=== PATIENT | male | born 1955 | race Two or more races ===

== ENCOUNTER 2025-07-01 07:21 | Inpatient (IN) | payer OTHER, MEDICAID ==
[~2025-07-01] VITALS: Ht 170.2 cm; Wt 74.9 kg
--- NOTE | 2025-07-01 07:32 | ED.PDOC ---
History of Present Illness HPI Comments 69-year-old male brought by paramedics because of dizziness and alcohol intoxication. He is having problem with his son for which he has been drinking continuously for the past week. Last drink was an hour ago. He states that he is depressed he has no reason to live in hear voices but does not have a plan to harm himself. History of hypertension. Denies any other symptoms. Chief Complaint: ETOH Time Seen by MD: 07:27 Reviewed Notes: Nurses Notes, Medications, Allergies Allergies: Coded Allergies: NO KNOWN ALLERGIES (Unverified , 07/01/25) Information Source: Patient, Emergency Med Personnel Mode of Arrival: EMS Severity: Moderate Timing: Days Duration: Since onset Past Medical History PAST MEDICAL HISTORY: HTN Surgical History: Denies all surgeries Social History Smoker: Non-Smoker Alcohol: Heavy Drugs: Denies Drug Use Constitutional: denies: chills, diaphoresis, fatigue, fever, malaise, sweats, weakness, others EENTM: denies: blurred vision, double vision, ear bleeding, ear discharge, ear drainage, ear pain, ear ringing, eye pain, eye redness, hearing loss, mouth pain, mouth swelling, nasal discharge, nose bleeding, nose congestion, nose pain, photophobia, tearing, throat pain, throat swelling, voice changes, others Respiratory: denies: cough, hemoptysis, orthopnea, SOB at rest, shortness of breath, SOB with excertion, stridor, wheezing, others Cardiovascular: denies: chest pain, dizzy spells, diaphoresis, Dyspnea on exertion, edema, irregular heart beat, left arm pain, lightheadedness, palpitations, PND, syncope, others Gastrointestinal: denies: abdomen distended, abdominal pain, blood streaked bowels, constipated, diarrhea, dysphagia, difficulty swallowing, hematemesis, melena, nausea, poor appetite, poor fluid intake, rectal bleeding, rectal pain, vomiting, others Genitourinary: denies: burning, dysuria, flank pain, frequency, hematuria, incontinence, penile discharge, penile sore, pain, testicle pain, testicle swelling, urgency, others Neurological: reports: dizziness; denies: fainting, headache, left sided numbness, left sided weakness, numbness, paresthesia, pre-existing deficit, right sided numbness, right sided weakness, seizure, speech problems, tingling, tremors, weakness, others Musculoskeletal: denies: back pain, gout, joint pain, joint swelling, muscle pain, muscle stiffness, neck pain, others Integumetry: denies: bruises, change in color, change in hair/nails, dryness, laceration, lesions, lumps, rash, wounds, others Allergic/Immunocompromised: denies: Difficulty Healing, Frequent Infections, Hives, Itching, others Hematologic/Lymphatic: denies: anemia, blood clots, easy bleeding, easy bruising, swollen glands, others Endocrine: denies: excessive hunger, excessive sweating, excessive thirst, excessive urination, flushing, intolerance to cold, intolerance to heat, unexplained weight gain, unexplained weight loss, others Psychiatric: denies: anxiety, bipolar disorder, depression, hopeless, panic disorder, schizophrenia, sleepless, suicidal, others Physical Exam General Appearance: Moderate Distress HEENT: Normal ENT Inspection, Pharynx Normal, TMs Normal Neck: Full Range of Motion, Non-Tender, Normal, Normal Inspection Respiratory: Chest Non-Tender, Lungs Clear, No Accessory Muscle Use, No Respiratory Distress, Normal Breath Sounds Cardiovascular: No Edema, No JVD, No Murmur, No Gallop, Normal Peripheral Pulses, Regular Rate/Rhythm Breast Exam: Deferred Gastrointestinal: No Organomegaly, Non Tender, No Pulsatile Mass, Normal Bowel Sounds, Soft Genitalia: Deferred Pelvic: Deferred Rectal: Deferred Extremities: No calf tenderness, Normal capillary refill, Normal inspection, Normal range of motion, Non-tender, No pedal edema Musculoskeletal : Apperance: Normal Neurologic: Alert, cheese pancake roller II-XII nml as Tested, No Motor Deficits, Normal Affect, Normal Mood, No Sensory Deficits Cerebellar Function: NOT DONE Reflexes: NOT DONE Skin: Dry, Normal Color, Warm Peripheral Pulses: 3+ Radial (R), 3+ Radial (L) Lymphatic: No Adenopathy Was a procedure done? Was a procedure done?: No Differential Dx Considerations may include: Alcohol intoxication Electrolyte imbalance X-Ray, Labs, Meds, VS Vital Signs Date Time Temp Pulse Resp B/P (MAP) Pulse Ox O2 Delivery O2 Flow Rate FiO2 07/01/25 08:21 98.5 114 19 173/99 (123) 95 98.5 07/01/25 08:21 114 19 95 Room Air* 0 21 07/01/25 07:26 97.9 96 20 164/104 98 97.9 Lab Test 07/01/25 07:42 Range/Units White Blood Count 7.8 4.4-10.8 10^3/uL Red Blood Count 5.37 4.5-5.90 10^6/uL Hemoglobin 16.8 13.5-17.5 g/dL Hematocrit 48.9 41.0-53.0 % Mean Corpuscular Volume 91.0 80.0-100.0 fL Mean Corpuscular Hemoglobin 31.3 28.0-32.0 pg Mean Corpuscular Hemoglobin Concent 34.4 32.0-36.0 g/dL Red Cell Distribution Width 14.3 11.8-14.3 % Platelet Count 165 140-450 10^3/uL Mean Platelet Volume 7.5 6.9-10.8 fL Neutrophils (%) (Auto) 75.4 37.0-80.0 % Lymphocytes (%) (Auto) 18.7 10.0-50.0 % Monocytes (%) (Auto) 4.9 0.0-12.0 % Eosinophils (%) (Auto) 0.4 0.0-7.0 % Basophils (%) (Auto) 0.6 0.0-2.0 % Neutrophils # (Auto) 5.9 1.6-8.6 10 ^3/uL Lymphocytes # (Auto) 1.4 0.4-5.4 10 ^3/uL Monocytes # (Auto) 0.4 0-1.3 10 ^3/uL Eosinophils # (Auto) 0 0-0.8 10 ^3/uL Basophils # (Auto) 0 0-0.2 10 ^3/uL Nucleated Red Blood Cells 0.0 % Sodium Level 142 136-145 mmol/L Potassium Level 3.4 L 3.5-5.1 mmol/L Chloride Level 103 98-107 mmol/L Carbon Dioxide Level 19 L 20-31 mmol/L Anion Gap 20 H 5-15 Blood Urea Nitrogen 14 9-23 mg/dL Creatinine 1.17 0.700-1.30 mg/dL Glomerular Filtration Rate Calc 67 >90 mL/min BUN/Creatinine Ratio 12.0 10.0-20.0 Serum Glucose 109 H 74-106 mg/dL Calcium Level 9.2 8.7-10.4 mg/dL Plasma/Serum Blood Alcohol 198.2 H <10 mg/dL Current Medications Medications (Trade) Dose Ordered Sig/Mina Route Start Time Stop Time Status Last Admin Sodium Chloride 1,000 ml @ 1,000 mls/hr Q1H ONCE IVB 07/01/25 07:30 07/01/25 08:29 DC 07/01/25 08:13 Sodium Chloride 1,000 ml @ 30 mls/hr Q24H ONCE IV 07/01/25 07:30 07/02/25 07:29 07/01/25 08:14 Thiamine HCl 100 mg ONCE ONCE IV 07/01/25 07:30 07/01/25 07:31 DC 07/01/25 08:13 Patient alert. Has been drinking for many days. Vitals stable. Answering questions. No sign of any trauma. Establish intravenous access. Was given fluids. Was given thiamine. He has suicidal ideation. Chest x-ray reviewed does not show any acute changes pain CT of the head was not done because there was no trauma related injury. Psychiatric evaluation. Continue monitoring. [place] [id number] Ph: [phone] DIAGNOSTIC IMAGING Diagnostic Imaging Report : [id number] Signed PATIENT: BHAVANA OLSEN ACCT: [id number] UNIT: [id number] : 1955 LOC: ER ROOM / BED: / AGE / SEX: 69 / M ADM STATUS: REG ER SERVICE 5 ORDERING PHYSICIAN: WILL SIDHU MD PROCEDURE(s): CXRP - CHEST PORTABLE REASON: sob ORDER NUMBER(s): [id number], ACCESSION NUMBER(s): [id number] XY CHEST PORTABLE, HISTORY: sob COMPARISON: None None TECHNICAL DATA: 1 view of the chest was obtained. FINDINGS: Lines and tubes: None Cardiomediastinal silhouette: normal Pulmonary vasculature: normal Lung expansion: normal Lung airspace: normal Lung interstitium: normal Pleura: normal Pneumothorax: no Bones: Unremarkable Other: no IMPRESSION: No acute intrathoracic abnormality. ATED BY: ABDI DENNEY MD DICTATED DATE/TIME: 07/01/25840 SIGNED BY: ABDI DENNEY MD SIGNED DATE/TIME: 07/01/25 0841 CC: Time of 1ST Reevaluation: 07:31 Reevaluation 1ST: Unchanged Patient Education/Counseling: Diagnosis, Treatment, Prognosis, Need For Follow Up Family Education/Counseling: No Family Present SEPSIS Sepsis Screen Physician Orders Urinalysis (07/01/25 07:27) Chest Portable (07/01/25 08:16) Sodium Chloride 0.9% (07/01/25 07:30) *Tele Psych Consult (07/01/25 07:33) Vital Signs Date Time Temp Pulse Resp B/P (MAP) Pulse Ox O2 Delivery O2 Flow Rate FiO2 07/01/25 08:21 98.5 114 19 173/99 (123) 95 98.5 07/01/25 08:21 114 19 95 Room Air* 0 21 07/01/25 07:26 97.9 96 20 164/104 98 97.9 Laboratory Tests Test 07/01/25 07:42 White Blood Count 7.8 10^3/uL (4.4-10.8) Medications Medications Dose Ordered Sig/Mina Route Start Time Stop Time Status Last Admin Dose Admin Sodium Chloride 1,000 ml @ 30 mls/hr Q24H ONCE IV 07/01/25 07:30 07/02/25 07:29 07/01/25 08:14 Sodium Chloride 1,000 ml @ 1,000 mls/hr Q1H ONCE IVB 07/01/25 07:30 07/01/25 08:29 DC 07/01/25 08:13 Thiamine HCl 100 mg ONCE ONCE IV 07/01/25 07:30 07/01/25 07:31 DC 07/01/25 08:13 Departure 1 Departure Time of Disposition: 07:32 Impression: Primary Impression: Alcohol intoxication Qualified Codes: F10.929 - Alcohol use, unspecified with intoxication, unspecified Disposition: 09 ADMITTED INPATIENT Admit to: Med Surg Condition: Guarded Critical Care Note Critical Care Time?: Yes (90 min-critical care time only) Stability Stability form required: No Heart Score Heart Score: Heart Score Response (Comments) Value History N/A 0 EKG N/A 0 Age N/A 0 Risk Factors N/A 0 Troponin N/A 0 Total 0 I personally scribed for WILL SIDHU MD ([email or web address]) on 07/01/25 at 09:15. Electronically submitted by Kamala Villar ([email or web address]). WILL SIDHU MD Jul 01, 2025 07:32
[2025-07-01 08:07] LABS: Hematocrit 48.9 % (41.0-53.0); Hemoglobin 16.8 g/dL (13.5-17.5); Mean Corpuscular Hemoglobin 31.3 pg (28.0-32.0); Mean Corpuscular Volume 91.0 fL (80.0-100.0); Nucleated Red Blood Cells % 0.0 %
[2025-07-01] MEDS: SODIUM CHLORIDE 0.9% 1,000 ML IVB ONE (08:13)
[2025-07-01] MEDS: THIAMINE 100mg/ml INJ (200mg/2ml VIAL) IV ONE (08:13)
[2025-07-01] MEDS: SODIUM CHLORIDE 0.9% 1,000 ML IV ONE (08:14)
[2025-07-01] MEDS: LORazepam 2MG/ML-1ML VIAL IV ONE (08:15)
[2025-07-01 08:16] LABS: Chloride 103 mmol/L (98-107); Sodium 142 mmol/L (136-145)
[2025-07-01 08:17] LABS: Anion Gap 20 (5-15)
[2025-07-01 08:18] LABS: Calcium 9.2 mg/dL (8.7-10.4)
[2025-07-01 08:21] VITALS: PULSE 114; RESP 19; O2SAT 95
[2025-07-01 08:23] LABS: BUN/Creatinine Ratio 12.0 (10.0-20.0); Blood Urea Nitrogen 14 mg/dL (9-23); Carbon Dioxide 19 mmol/L (20-31); Glucose 109 mg/dL (74-106); Potassium 3.4 mmol/L (3.5-5.1)
--- NOTE | 2025-07-01 08:44 | DVH ---
XY CHEST PORTABLE, HISTORY: sob COMPARISON: None None TECHNICAL DATA: 1 view of the chest was obtained. FINDINGS: Lines and tubes: None Cardiomediastinal silhouette: normal Pulmonary vasculature: normal Lung expansion: normal Lung airspace: normal Lung interstitium: normal Pleura: normal Pneumothorax: no Bones: Unremarkable Other: no IMPRESSION: No acute intrathoracic abnormality.
[2025-07-01] MEDS ORDERED: MORPHINE SULFATE INJ 2 MG/ml SYRG IV PRN (16:15)
[2025-07-01] MEDS ORDERED: NITROGLYCERIN 0.4 MG SL TAB SL PRN (16:15)
[2025-07-01] MEDS ORDERED: HYDROcodone-ACET 5/325MG TAB PO PRN (16:15)
[2025-07-01] MEDS ORDERED: ACETAMINOPHEN 325 MG TAB PO PRN (16:15)
[2025-07-01] MEDS: FOLIC ACID 1 MG, MULTIPLE VITAMIN 10 ML, MAGNESIUM SULF SDV 50% 8 MEQ, THIAMINE INJ 100... INJ SCH (20:32)
[2025-07-02] VITALS (10 sets, daily range): BP systolic 143–193; BP diastolic 96–106; PULSE 81–116; RESP 15–20; TEMP 98–99.7; O2SAT 94–98
--- NOTE | 2025-07-02 00:22 | DVHHP2 ---
NOHEMY CASTRO [employer]IL [employer] 07/02/25 0022: History of Present Illness Reason for Visit: Alcohol intoxication History of Present Illness 69-year-old male with past medical history of hypertension, alcohol abuse presents with complaints of dizziness and alcohol intoxication x1 week. Patient states he has had problems at home with the son triggering his alcoholism. Last drink was Wednesday morning. Is endorsing feelings of not wanting to live. Denies SI/HI. No additional complaints at this time Psych: Addictions, Depression Smoke: No ALCOHOL: heavy Drugs: None Lives: with Family Review of Systems Constitutional: Yes: Malaise; No: Fever, Chills, Sweats, Weakness, Other Eyes: No: Pain, Vision change, Conjunctivae inflammation, Eyelid inflammation, Other, Redness ENT: No: Ear pain, Ear discharge, Nose pain, Nose discharge, Nose congestion, Mouth pain, Mouth swelling, Throat pain, Throat swelling, Other Respiratory: No: Cough, Dry, Shortness of breath, SOB with excertion, Wheezing, Hemoptysis, Pleuritic Pain, Sputum, Wheezing, Other Cardiovascular: No: Chest Pain, Palpitations, Orthopnea, Paroxysmal Noc. Dyspnea, Edema, Lt Headedness, Other Gastrointestinal: No: Nausea, Vomiting, Abdominal Pain, Diarrhea, Constipation, Melena, Hematochezia, Other Genitourinary: No Dysuria, No Frequency, No Incontinence, No Hematuria, No Retention, No Other Musculoskeletal: No: other, neck pain, shoulder pain, arm pain, back pain, hand pain, leg pain, foot pain Skin: No: Rash, Lesions, Jaundice, Bruising, Other Neurological: No: Weakness, Numbness, Incoordination, Change in speech, Confusion, Seizures, Other Allergies: Coded Allergies: NO KNOWN ALLERGIES (Unverified , 07/01/25) Medications Current Medications Medications Dose Ordered Sig/Mina Route Start Time Stop Time Status Last Admin Dose Admin Acetaminophen/ Hydrocodone Bitart 1 tab Q4HP PRN PO 07/01/25 16:15 Ondansetron HCl 4 mg Q4HP PRN IV 07/01/25 16:15 Acetaminophen 650 mg Q6HP PRN PO 07/01/25 16:15 Morphine Sulfate 2 mg Q4HPRN PRN IV 07/01/25 16:15 Nitroglycerin 0.4 mg Q5MINP PRN SL 07/01/25 16:15 Morphine Sulfate 2 mg Q30M PRN IV 07/01/25 16:15 Folic Acid 1 mg/ Multivitamins 10 ml/Magnesium Sulfate 8 meq/ Thiamine HCl 100 mg/Dextrose 1,013.2 ml @ 125.001 mls/hr DAILY@1800 INJ 07/01/25 18:00 07/01/25 20:32 125.001 MLS/HR Gabapentin 300 mg TID PO 07/02/25 06:00 UNV Exam Vital Signs Vital Signs Date Time Temp Pulse Resp B/P (MAP) Pulse Ox O2 Delivery O2 Flow Rate FiO2 07/01/25 20:29 98.2 114 19 213/110 (144) 95 98.2 07/01/25 08:21 Room Air* 0 21 General Appearance: Alert, Oriented X3, mild distress HEENT: Atraumatic, PERRLA, EOMI Respiratory: Clear to auscultation, Normal air movement Cardiovascular: Regular rate, Normal S1, Normal S2 Abdominal: Normal bowel sounds, Soft, No tenderness Extremities: No clubbing, No cyanosis, No edema Skin: No rashes Neuro: Normal speech, Strength at 5/5 X4 ext, Other (Bilateral hand tremors noted) Psych/Mental Status: Other (Flat affect) Labs/Xrays Labs Test 07/01/25 10:03 07/01/25 07:42 Range/Units POC Glucose 130 H 70-106 mg/dl White Blood Count 7.8 4.4-10.8 10^3/uL Red Blood Count 5.37 4.5-5.90 10^6/uL Hemoglobin 16.8 13.5-17.5 g/dL Hematocrit 48.9 41.0-53.0 % Mean Corpuscular Volume 91.0 80.0-100.0 fL Mean Corpuscular Hemoglobin 31.3 28.0-32.0 pg Mean Corpuscular Hemoglobin Concent 34.4 32.0-36.0 g/dL Red Cell Distribution Width 14.3 11.8-14.3 % Platelet Count 165 140-450 10^3/uL Mean Platelet Volume 7.5 6.9-10.8 fL Neutrophils (%) (Auto) 75.4 37.0-80.0 % Lymphocytes (%) (Auto) 18.7 10.0-50.0 % Monocytes (%) (Auto) 4.9 0.0-12.0 % Eosinophils (%) (Auto) 0.4 0.0-7.0 % Basophils (%) (Auto) 0.6 0.0-2.0 % Neutrophils # (Auto) 5.9 1.6-8.6 10 ^3/uL Lymphocytes # (Auto) 1.4 0.4-5.4 10 ^3/uL Monocytes # (Auto) 0.4 0-1.3 10 ^3/uL Eosinophils # (Auto) 0 0-0.8 10 ^3/uL Basophils # (Auto) 0 0-0.2 10 ^3/uL Nucleated Red Blood Cells 0.0 % Sodium Level 142 136-145 mmol/L Potassium Level 3.4 L 3.5-5.1 mmol/L Chloride Level 103 98-107 mmol/L Carbon Dioxide Level 19 L 20-31 mmol/L Anion Gap 20 H 5-15 Blood Urea Nitrogen 14 9-23 mg/dL Creatinine 1.17 0.700-1.30 mg/dL Glomerular Filtration Rate Calc 67 >90 mL/min BUN/Creatinine Ratio 12.0 10.0-20.0 Serum Glucose 109 H 74-106 mg/dL Calcium Level 9.2 8.7-10.4 mg/dL Plasma/Serum Blood Alcohol 198.2 H <10 mg/dL SEPSIS Sepsis Screen Date sepsis recognized/suspect: Jul 01, 2025 Time Sepsis recognized/suspect: 719 Recent Procedure: No On Antibiotic Therapy: No Respiratory Rate >20: No Heart Rate >90: Yes Temp<36 C (96.8 F) or >38.3 C: No SBP <90 or MAP <65 mmHG: No New Acute Mental Status Change: No Is the patient on CPAP, BIPAP,: No Physician Orders Gabapentin Capsule (Neurontin Capsule) (07/02/25 06:00) Chlordiazepoxide Hcl Capsule (Librium Ca (07/02/25 00:15) Vital Signs Date Time Temp Pulse Resp B/P (MAP) Pulse Ox O2 Delivery O2 Flow Rate FiO2 07/01/25 20:29 98.2 114 19 213/110 (144) 95 98.2 Medications Medications Dose Ordered Sig/Mina Route Start Time Stop Time Status Last Admin Dose Admin Folic Acid 1 mg/ Multivitamins 10 ml/Magnesium Sulfate 8 meq/ Thiamine HCl 100 mg/Dextrose 1,013.2 ml @ 125.001 mls/hr DAILY@1800 INJ 07/01/25 18:00 07/01/25 20:32 125.001 MLS/HR Assessment/Plan Assessment/Plan Alcohol Intoxication Depression Hypertension Plan Admit telemetry Psych consult IVF, banana bag. Monitor for withdrawal symptoms. CIWA scale. Gabapentin, Librium, seizure, precautions, Continue home medication. As needed antihypertensive for optimal BP management. GI ppx protonix / DVT ppx scd Plan discussed with: Patient My Orders Orders - NOHEMY CASTRO NP Procedure Category Date Status Time Gabapentin Capsule PHA 07/02/25 Transmitted (Neurontin Capsule) 06:00 Chlordiazepoxide Hcl PHA 07/02/25 Transmitted Capsule (Librium Ca 00:15 Date of Service: Jul 02, 2025 Billing Provider: JIMBO LANGE MD Common Visit Codes: NOT BILLABLE JIMBO LANGE MD 07/02/25 1739: Review of Systems Allergies: Coded Allergies: NO KNOWN ALLERGIES (Unverified , 07/01/25) NOHEMY CASTRO NP Jul 02, 2025 00:22 JIMBO LANGE MD Jul 02, 2025 17:39
[2025-07-02] MEDS: MORPHINE SULFATE INJ 2 MG/ml SYRG IV PRN (01:01)
[2025-07-02] MEDS: ONDANSETRON HCL 4 MG/2 ML VIAL IV PRN (01:02)
[2025-07-02] MEDS: hydrALAZINE HCL 20 MG/ML VL IV PRN (02:38)
[2025-07-02] MEDS ORDERED: TRAZ-227 PO (03:53)
[2025-07-02] MEDS ORDERED: MOME1SPR3 NAS (03:53)
[2025-07-02] MEDS ORDERED: PANT40TA57 PO (03:53)
[2025-07-02] MEDS ORDERED: MET50T PO (03:53)
[2025-07-02 04:50] LABS: Hematocrit 44.4 % (41.0-53.0); Hemoglobin 15.3 g/dL (13.5-17.5); Mean Corpuscular Hemoglobin 31.0 pg (28.0-32.0); Mean Corpuscular Volume 89.8 fL (80.0-100.0); Nucleated Red Blood Cells % 0.0 %
[2025-07-02 04:58] LABS: Alanine Aminotransferase 25 U/L (7-40); Albumin 4.6 g/dL (3.2-4.8); Anion Gap 14 (5-15); BUN/Creatinine Ratio 14.7 (10.0-20.0); Blood Urea Nitrogen 14 mg/dL (9-23); Calcium 8.9 mg/dL (8.7-10.4); Carbon Dioxide 20 mmol/L (20-31); Chloride 105 mmol/L (98-107); Potassium 3.6 mmol/L (3.5-5.1); Sodium 139 mmol/L (136-145); Total Protein 7.2 g/dL (5.7-8.2)
[2025-07-02 04:59] LABS: Bilirubin, Total 1.0 mg/dL (0.2-1.0)
[2025-07-02 05:01] LABS: Alkaline Phosphatase 37 U/L (46-116); Glucose 156 mg/dL (74-106)
[2025-07-02] MEDS: GABAPENTIN 300 MG CAP PO SCH (06:03)
[2025-07-02 09:39] LABS: Urine Budding Yeast OCCASIONAL /hpf (None Seen); Urine Protein, UAD TRACE (Negative)
[2025-07-02] MEDS: METOPROLOL TARTRATE 50 MG TAB PO SCH (10:28)
[2025-07-03] VITALS (7 sets, daily range): BP systolic 137–169; BP diastolic 95–103; PULSE 69–97; RESP 16–18; TEMP 97.6–99.1; O2SAT 94–97
--- NOTE | 2025-07-03 08:43 | DVHINCON2 ---
Date of Service if different f: Jul 02, 2025 Time of Service: 18:30 Consultation ([place]) Labs Laboratory Tests Test 07/01/25 07:42 07/01/25 09:00 07/01/25 10:03 07/02/25 04:05 Plasma/Serum Blood Alcohol 198.2 mg/dL (<10) Urine Color Light-yellow (Yellow) Urine Clarity Turbid (Clear) Urine pH 5.5 (5.0-9.0) Urine Specific [place] 1.020 (1.001-1.035) Urine Protein Trace (Negative) Urine Ketones 2+ (Negative) Urine Blood Negative /uL (Negative) Urine Nitrite Negative (Negative) Urine Bilirubin Negative (Negative) Urine Urobilinogen Normal mg/dL (Negative) Urine Leukocyte Esterase Negative /uL (Negative) Urine RBC 1 /hpf (0 - 3) Urine Microscopic WBC < 1 /HPF (0-3) Urine Squamous Epithelial Cells Few /hpf (<5) Urine Triple Phosphate Crystals Few /hpf (None Seen) Urine Bacteria Few /hpf (None Seen) Urine Mucus Few (None Seen) Urine Yeast (Budding) Occasional /hpf (None Urine Glucose 3+ mg/dL (Normal) Bedside Glucose 130 mg/dl (70-106) White Blood Count 8.9 10^3/uL (4.4-10.8) Red Blood Count 4.94 10^6/uL (4.5-5.90) Hemoglobin 15.3 g/dL (13.5-17.5) Hematocrit 44.4 % (41.0-53.0) Mean Corpuscular Volume 89.8 fL (80.0-100.0) Mean Corpuscular Hemoglobin 31.0 pg (28.0-32.0) Mean Corpuscular Hemoglobin Concent 34.5 g/dL (32.0-36.0) Red Cell Distribution Width 14.6 % (11.8-14.3) Platelet Count 144 10^3/uL (140-450) Mean Platelet Volume 7.9 fL (6.9-10.8) Neutrophils (%) (Auto) 81.1 % (37.0-80.0) Lymphocytes (%) (Auto) 9.3 % (10.0-50.0) Monocytes (%) (Auto) 9.3 % (0.0-12.0) Eosinophils (%) (Auto) 0.1 % (0.0-7.0) Basophils (%) (Auto) 0.2 % (0.0-2.0) Neutrophils # (Auto) 7.3 10 ^3/uL (1.6-8.6) Lymphocytes # (Auto) 0.8 10 ^3/uL (0.4-5.4) Monocytes # (Auto) 0.8 10 ^3/uL (0-1.3) Eosinophils # (Auto) 0 10 ^3/uL (0-0.8) Basophils # (Auto) 0 10 ^3/uL (0-0.2) Nucleated Red Blood Cells 0.0 % Sodium Level 139 mmol/L (136-145) Potassium Level 3.6 mmol/L (3.5-5.1) Chloride Level 105 mmol/L (98-107) Carbon Dioxide Level 20 mmol/L (20-31) Anion Gap 14 (5-15) Blood Urea Nitrogen 14 mg/dL (9-23) Creatinine 0.95 mg/dL (0.700-1.30) Glomerular Filtration Rate Calc 87 mL/min (>90) BUN/Creatinine Ratio 14.7 (10.0-20.0) Serum Glucose 156 mg/dL (74-106) Calcium Level 8.9 mg/dL (8.7-10.4) Total Bilirubin 1.0 mg/dL (0.2-1.0) Aspartate Amino Transf (AST/SGOT) 23 U/L (13-40) Alanine Aminotransferase (ALT/SGPT) 25 U/L (7-40) Alkaline Phosphatase 37 U/L (46-116) Total Protein 7.2 g/dL (5.7-8.2) Albumin 4.6 g/dL (3.2-4.8) Vitals Vital Signs Date Time Temp Pulse Resp B/P (MAP) Pulse Ox O2 Delivery O2 Flow Rate FiO2 07/03/25 05:00 98.4 69 16 137/99 (112) 94 98.4 07/02/25 20:00 Room Air* 0 21 Current medications Current Medications Medications Dose Ordered Sig/Mina Route Start Time Stop Time Status Last Admin Dose Admin Acetaminophen/ Hydrocodone Bitart 1 tab Q4HP PRN PO 07/01/25 16:15 Ondansetron HCl 4 mg Q4HP PRN IV 07/01/25 16:15 07/02/25 01:02 4 MG Acetaminophen 650 mg Q6HP PRN PO 07/01/25 16:15 Morphine Sulfate 2 mg Q4HPRN PRN IV 07/01/25 16:15 07/02/25 01:01 2 MG Nitroglycerin 0.4 mg Q5MINP PRN SL 07/01/25 16:15 Morphine Sulfate 2 mg Q30M PRN IV 07/01/25 16:15 Folic Acid 1 mg/ Multivitamins 10 ml/Magnesium Sulfate 8 meq/ Thiamine HCl 100 mg/Dextrose 1,013.2 ml @ 125.001 mls/hr DAILY@1800 INJ 07/01/25 18:00 07/02/25 18:29 125.001 MLS/HR Gabapentin 300 mg TID PO 07/02/25 06:00 07/03/25 05:51 300 MG Chlordiazepoxide HCl 25 mg Q8HPRN PRN PO 07/02/25 00:15 07/02/25 11:18 25 MG Metoprolol Tartrate 50 mg BID PO 07/02/25 10:00 07/02/25 21:40 50 MG Hydralazine HCl 10 mg Q6HP PRN IV 07/02/25 01:15 07/02/25 10:34 10 MG PSYCHIATRY CONSULTATION INITIAL EVALUATION REASON FOR CONSULT: SI HPI: 69-year-old man evaluated for suicidal thoughts in the context of alcohol use. Patient reports recent stress related to his sons ongoing substance use. To cope, he has been drinking alcohol about three days per week. Three days ago he consumed a full bottle of vodka, followed by half a bottle the next day. He reports that while intoxicated he had thoughts of not wanting to live but denies any plan, intent, or ongoing desire to harm himself. He has never attempted suicide and denies access to firearms. He presented yesterday after waking with stomach pain and tremulousness. He has not had alcohol for two days. He denies santiago depression, though he acknowledges stress, reliance on alcohol to cope, and difficulty sleeping. He is currently prescribed an unidentified sleep aid by his PCP, which he feels is only partially helpful. He has never trialed an antidepressant but is open to c onsidering one. He is agreeable to follow-up with his PCP and to establishing outpatient psychiatric care. PSYCHIATRIC HISTORY: Diagnosis: Anxiety, insomnia Admissions: None Medication trials: Current sleep aid from PCP (name unknown) Outpatient care: None Therapy: None SI/Attempts: Passive SI only in the setting of alcohol intoxication; no attempts; no firearms access SUBSTANCE USE: Alcohol: 3 days per week, 12 shots per sitting; recent binge (1.5 bottles vodka over 2 days) Denies history of withdrawal seizures or delirium tremens, though reports mild shakiness yesterday No other substances reported MENTAL STATUS EXAMINATION: The patient appears his stated age, casually dressed and appropriately groomed. He is calm and cooperative throughout the interview. Speech is normal in rate, tone, and volume. Mood is described as stressed, with affect full and congruent. Thought processes are linear and goal-directed. Thought content is notable for past passive suicidal ideation while intoxicated, but he denies current SI, HI, hallucinations, or delusions. Cognition is intact with orientation to person, place, time, and situation. Attention and concentration are adequate. Memory is grossly intact. Insight and judgment are fair. DIFFERENTIAL DIAGNOSIS Adjustment disorder with anxious features Alcohol use disorder, moderate, with recent binge pattern Substance-induced mood disorder (SI in setting of intoxication) Generalized anxiety disorder Insomnia, chronic ASSESSMENT: This is a 69-year-old man with anxiety, insomnia, and alcohol use disorder who presented after binge drinking and endorsing passive suicidal ideation while intoxicated. He currently denies SI, HI, or psychosis, and demonstrates intact reality testing. His risk of suicide is elevated in the context of alcohol use, but he does not meet criteria for involuntary psychiatric hold (5150) or inpatient psychiatric hospitalization. He remains appropriate for outpatient follow-up and treatment planning. RECOMMENDATIONS: 1. Legal: No 5150 indicated. Patient does not present acute danger to self, others, or grave disability. 2. Disposition: No inpatient psychiatry admission indicated. Safe for discharge once medically cleared. Strongly recommend referral to outpatient psychiatry and therapy. 3. Medications - Clarify current prescribed sleep aid by contacting his pharmacy, as dose adjustment may improve sleep. - If no contraindications, may consider gabapentin to address anxiety, insomnia, and alcohol use cravings. - Patient is open to an antidepressant trial; defer initiation to PCP or outpatient psychiatrist for continuity of care. 4. Medical Considerations - Monitor for alcohol withdrawal symptoms; treat per [facility] protocol if indicated. - Encourage patient to discuss antidepressant initiation with his PCP in the near term. 5. Other - Provide referrals to substance use treatment programs and community support groups ([facility]). - Encourage engagement with outpatient psychiatric services. - Reinforce education that suicide risk increases significantly in the setting of alcohol intoxication. JULIANO HERNÁNDEZ MD Jul 03, 2025 08:43
[2025-07-03] MEDS ORDERED: GABA-1251 PO (14:40)
[2025-07-03] MEDS: MAGNESIUM OXIDE 400 MG TAB PO ONE (16:13)
[2025-07-03] MEDS: MULTIPLE VITAMIN TAB PO ONE (16:13)
[2025-07-03] MEDS: FOLIC ACID 1 MG TAB PO ONE (16:13)
[2025-07-03] MEDS: THIAMINE HCL 100 MG TAB PO ONE (16:14)
--- NOTE | 2025-07-03 17:04 | DVHDS2 ---
Discharge Summary Date of Admission Jul 01, 2025 at 16:11 Date of Discharge: Jul 03, 2025 Labs/Diagnostic Data: Laboratory Results Test 07/02/25 04:05 07/01/25 10:03 07/01/25 09:00 07/01/25 07:42 White Blood Count 8.9 10^3/uL (4.4-10.8) Red Blood Count 4.94 10^6/uL (4.5-5.90) Hemoglobin 15.3 g/dL (13.5-17.5) Hematocrit 44.4 % (41.0-53.0) Mean Corpuscular Volume 89.8 fL (80.0-100.0) Mean Corpuscular Hemoglobin 31.0 pg (28.0-32.0) Mean Corpuscular Hemoglobin Concent 34.5 g/dL (32.0-36.0) Red Cell Distribution Width 14.6 % (11.8-14.3) Platelet Count 144 10^3/uL (140-450) Mean Platelet Volume 7.9 fL (6.9-10.8) Neutrophils (%) (Auto) 81.1 % (37.0-80.0) Lymphocytes (%) (Auto) 9.3 % (10.0-50.0) Monocytes (%) (Auto) 9.3 % (0.0-12.0) Eosinophils (%) (Auto) 0.1 % (0.0-7.0) Basophils (%) (Auto) 0.2 % (0.0-2.0) Neutrophils # (Auto) 7.3 10 ^3/uL (1.6-8.6) Lymphocytes # (Auto) 0.8 10 ^3/uL (0.4-5.4) Monocytes # (Auto) 0.8 10 ^3/uL (0-1.3) Eosinophils # (Auto) 0 10 ^3/uL (0-0.8) Basophils # (Auto) 0 10 ^3/uL (0-0.2) Nucleated Red Blood Cells 0.0 % Sodium Level 139 mmol/L (136-145) Potassium Level 3.6 mmol/L (3.5-5.1) Chloride Level 105 mmol/L (98-107) Carbon Dioxide Level 20 mmol/L (20-31) Anion Gap 14 (5-15) Blood Urea Nitrogen 14 mg/dL (9-23) Creatinine 0.95 mg/dL (0.700-1.30) Glomerular Filtration Rate Calc 87 mL/min (>90) BUN/Creatinine Ratio 14.7 (10.0-20.0) Serum Glucose 156 mg/dL (74-106) Calcium Level 8.9 mg/dL (8.7-10.4) Total Bilirubin 1.0 mg/dL (0.2-1.0) Aspartate Amino Transferase (AST) 23 U/L (13-40) Alanine Aminotransferase (ALT) 25 U/L (7-40) Alkaline Phosphatase 37 U/L (46-116) Total Protein 7.2 g/dL (5.7-8.2) Albumin 4.6 g/dL (3.2-4.8) POC Glucose 130 mg/dl (70-106) Urine Color Light-yellow (Yellow) Urine Clarity Turbid (Clear) Urine pH 5.5 (5.0-9.0) Urine Specific [place] 1.020 (1.001-1.035) Urine Protein Trace (Negative) Urine Ketones 2+ (Negative) Urine Blood Negative /uL (Negative) Urine Nitrite Negative (Negative) Urine Bilirubin Negative (Negative) Urine Urobilinogen Normal mg/dL (Negative) Urine Leukocyte Esterase Negative /uL (Negative) Urine RBC 1 /hpf (0 - 3) Urine Microscopic WBC < 1 /HPF (0-3) Urine Squamous Epithelial Cells Few /hpf (<5) Urine Triple Phosphate Crystals Few /hpf (None Seen) Urine Bacteria Few /hpf (None Seen) Urine Mucus Few (None Seen) Urine Yeast (Budding) Occasional /hpf (None Urine Glucose 3+ mg/dL (Normal) Plasma/Serum Blood Alcohol 198.2 mg/dL (<10) Other Laboratory Tests 07/02/25 04:05 Brief Hx & Hospital Course: 69-year-old male with a known history of chronic alcoholism, peripheral neuropathy, chronic insomnia, hypertension presented to the hospital with a altered mental status found to have acute alcoholic intoxication. Patient was eventually admitted started on IV medication banana bag and supplements. Patient's hospital course was uneventful. Patient was watched for any alcohol withdrawal syndrome. Today the patient is much better and requesting to go home. Patient is being discharged under stable condition with close follow up as an outpatient with PCP and Psychiatry and drug rehab as an outpatient. Condition at Discharge: Stable Final Diagnosis/Problems List 1. Acute alcoholic intoxication, resolved 2. Alcohol withdrawal syndrome, improved 3. Hypotension 4. Peripheral neuropathy 5. Chronic insomnia 6. Chronic alcoholism, complete alcohol abstinence was recommended. Discharge Disposition: Home SNF Discharge Will this Physician continue t: No Discharge Instruct/Medications Diet: Cardiac 2g Na,low cholest Activity: No Restrictions, As Tolerated Follow Up/Referral: Follow up with the PCP in one week Follow up with Psychiatry in 1-2 weeks Medications: Resume home medications. Continued Medications: Gabapentin (Gabapentin) 400 Mg Cap 1 CAP PO TID Metoprolol Tartrate (Lopressor Tablet) 50 Mg Tb 1 TAB PO BID Mometasone Furoate (Nasal) (Mometasone Furoate) 50 Mcg/Act Spr 2 SPRAY BRETT DAILY Pantoprazole Sodium Sesquihydr (Pantoprazole Sodium Dr) 40 Mg Tab 1 TAB PO DAILY Trazodone Hcl (Trazodone Hcl) 50 Mg Tab 1 TAB PO QHSP Scheduled Gabapentin (Gabapentin), 1 CAP PO TID, (Reported) Metoprolol Tartrate (Lopressor Tablet), 1 TAB PO BID, (Reported) Mometasone Furoate (Nasal) (Mometasone Furoate), 2 SPRAY BRETT DAILY, (Reported) Pantoprazole Sodium Sesquihydr (Pantoprazole Sodium Dr), 1 TAB PO DAILY, (Reported) Trazodone Hcl (Trazodone Hcl), 1 TAB PO QHSP, (Reported) Discharge Statement: "Patient was advised to return to the ER or call 911 if any headaches, dizziness, shortness of breath, chest pain, abdominal pain, bleeding, fevers, or worsening of medical condition. Patient was counseled about treatment plan, medications, possible side effects, patientverbalized understanding. All questions were answered to the best of my ability. This discharge took greater then 30 minutes in planning, reviewing documentation, counseling the patient, and discussing with other team members." ASSESSMENT ASSESSMENT Assessment 1. Acute alcoholic intoxication, resolved 2. Alcohol withdrawal syndrome, improved 3. Hypotension 4. Peripheral neuropathy 5. Chronic insomnia 6. Chronic alcoholism, complete alcohol abstinence was recommended. Date of Service: Jul 03, 2025 Billing Provider: JIMBO LANGE MD Common Visit Codes: 49284-UDP/OBS DISCH DAY >30min JIMBO LANGE MD Jul 03, 2025 17:04
[2025-07-04] MEDS ORDERED: MAGNESIUM OXIDE 400 MG TAB PO SCH (10:00)
[2025-07-04] MEDS ORDERED: FOLIC ACID 1 MG TAB PO SCH (10:00)
[2025-07-04] MEDS ORDERED: MULTIPLE VITAMIN TAB PO SCH (10:00)
[2025-07-04] MEDS ORDERED: THIAMINE HCL 100 MG TAB PO SCH (10:00)
== END 2025-07-03 17:49 | disposition home or self-care (01) | DRG 897 ==
LOC: EDBD 07:21 → ER 07:21 → OVERFLOW 16:11 → TELE-WESTW 07-02 15:50
PROVIDERS: ADMIT Internal Medicine; ATTEND Internal Medicine
DX: F10.229 Alcohol dependence with intoxication, unspecified (principal); F32.A Depression, unspecified; I10 Essential (primary) hypertension; F10.239 Alcohol dependence with withdrawal, unspecified; G62.9 Polyneuropathy, unspecified; F51.04 Psychophysiologic insomnia; I95.9 Hypotension, unspecified; Z79.899 Other long term (current) drug therapy; Y90.6 Blood alcohol level of 120-199 mg/100 ml
CPT/HCPCS: 36415; 71045; 80048; 80053; 80320; 81001; 82962; 85025; 96361; 96374; 99291; G0378; J2405